=== PATIENT | female | born 1985 | race Caucasian/White ===

== ENCOUNTER 2020-03-11 13:56 | Emergency (ER) | payer MEDICAID ==
[~2020-03-11] VITALS: Ht 149.9 cm; Wt 91.0 kg
[2020-03-11 14:09] VITALS: BP 147/92
[2020-03-11] MEDS ORDERED: CLIN300C70 PO (14:57)
== END 2020-03-11 15:14 | disposition home or self-care (01) ==
LOC: ER 13:58
DX: K02.9 Dental caries, unspecified (principal); Z88.2 Allergy status to sulfonamides; Z88.8 Allergy status to other drugs, medicaments and biological substances; Z79.899 Other long term (current) drug therapy
CPT/HCPCS: 99283

== ENCOUNTER 2020-09-04 13:42 | Emergency (ER) | payer MEDICAID ==
[~2020-09-04] VITALS: Ht 149.9 cm; Wt 84.1 kg
[2020-09-04 14:49] LABS: URINE HCG NEGATIVE (NEG)
[2020-09-04 14:51] LABS: CLARITY,URINE CLEAR (Clear); COLOR,URINE YELLOW (Yellow); GLUCOSE, URINE NEGATIVE (Neg); KETONES,URINE NEGATIVE (Neg); LEUKOCYTE ESTERASE ,URINE TRACE (Neg); NITRITES, URINE NEGATIVE (Neg); OCCULT BLOOD,URINE LARGE (Neg); PH,URINE 5.5 (4.8-8.0); PROTEIN,URINE NEGATIVE (Neg)
[2020-09-04 14:58] LABS: UA COLLECTION TYPE CLN CATCH MIDSTREAM
[2020-09-04 14:59] LABS: BACTERIA,URINE NONE SEEN /HPF (Neg); MUCUS STRANDS FEW /LPF (Neg); RBC,URINE 0-2 /HPF (0-2); SQUAMOUS EPITHELIAL CELL,UR FEW /LPF (FEW); WBC,URINE 0-4 /HPF (0-4)
--- NOTE | 2020-09-04 15:17 | NUR ---
PT WITH PAINFUL TOOTH TO R LOWER MOUTH, POOR DENTITION. NO SWELLING TO FACE. HAS HAD 3 DAYS OF VAGINAL BLEEDING (3 PADS/DAY) WITH RLQ ABD PAIN
[2020-09-04 15:31] LABS: BASOPHILS # (AUTO) 0.1 X10'3 (0-0.2); BASOPHILS % (AUTO) 0.8 % (0-1); EOSINOPHILS # (AUTO) 0.1 X10'3 (0-0.9); EOSINOPHILS % (AUTO) 1.1 % (0-6); HEMATOCRIT 41.6 % (35.0-45.0); HEMOGLOBIN 13.6 g/dl (12.0-16.0); LYMPHOCYTES % (AUTO) 20.3 % (21-51); MEAN CORPUSCULAR HEMOGLOBIN 30.5 PG (27.0-31.0); MEAN CORPUSCULAR HGB CONC 32.8 g/dL (33.0-36.5); MEAN PLATELET VOLUME 8.8 FL (7.4-10.4); MONOCYTES # (AUTO) 0.8 X10'3 (0-0.9); MONOCYTES % (AUTO) 7.5 % (2-12); NEUTROPHILS # (AUTO) 7.1 X10'3 (1.8-7.7); NEUTROPHILS % (AUTO) 70.3 % (42-75); PLATELET COUNT 332 X10'3 (140-440); RED BLOOD COUNT 4.47 X10'6 (4.20-5.60); RED CELL DISTRIBUTION WIDTH 12.7 % (11.5-14.5); WHITE BLOOD COUNT 10.1 X10'3 (4.5-11.0)
[2020-09-04 15:44] LABS: ANION GAP 12 (8-16); BLOOD UREA NITROGEN 7 MG/DL (7-18); BUN/CREATININE RATIO 11.3 (6.6-38.0); CALCIUM 8.7 MG/DL (8.5-10.1); CHLORIDE 107 MMOL/L (99-107); CREATININE 0.62 MG/DL (0.40-0.90); GLUCOSE 95 MG/DL (70-104); SODIUM 145 MMOL/L (135-145); TOTAL CARBON DIOXIDE 26.2 MMOL/L (24-32); eGFR > 90 ML/MIN
[2020-09-04 15:45] LABS: ALANINE AMINOTRANSFERASE 17 U/L (12-78); ALBUMIN 3.1 G/DL (3.4-5.0); ALBUMIN/GLOBULIN RATIO 0.8 (1.1-1.5); ALKALINE PHOSPHATASE 70 IU/L (46-116); ASPARTATE AMINO TRANSFERASE 13 U/L (10-37); BILIRUBIN,TOTAL 0.2 MG/DL (0.1-1.0); LIPASE 85 U/L (73-393); TOTAL PROTEIN 7.2 G/DL (6.4-8.2)
[2020-09-04] MEDS ORDERED: acetaminophen 325mg tablet PO ONE (16:15)
[2020-09-04] MEDS ORDERED: PENI250T2 PO (16:54)
[2020-09-04 17:09] LABS: BETA HCG,QUANTITATIVE < 1.0 mIU/ml
[2020-09-04 18:22] VITALS: BP 132/69
== END 2020-09-04 18:25 | disposition home or self-care (01) ==
LOC: ER 13:42
DX: K08.89 Other specified disorders of teeth and supporting structures (principal); N93.9 Abnormal uterine and vaginal bleeding, unspecified; Z88.2 Allergy status to sulfonamides; Z88.8 Allergy status to other drugs, medicaments and biological substances; Z79.2 Long term (current) use of antibiotics
CPT/HCPCS: 36415; 80053; 81001; 81025; 83690; 84702; 85025; 86885; 86900; 86901; 87088; 99283; 99285